=== PATIENT | male | born 1990 | race Caucasian/White ===

== ENCOUNTER 2023-05-17 01:26 | Emergency (ER) | payer SELFPAY ==
[2023-05-17 01:35] VITALS: BP 160/101; PULSE 100
== END 2023-05-17 02:28 | disposition left against medical advice (07) ==
LOC: JP.ED 01:26
DX: S66.811A Strain of other specified muscles, fascia and tendons at wrist and hand level, right hand, initial encounter (principal); F17.210 Nicotine dependence, cigarettes, uncomplicated; W22.8XXA Striking against or struck by other objects, initial encounter
CPT/HCPCS: 99283